=== PATIENT | male | born 1955 | race Caucasian/White ===

== ENCOUNTER 2019-05-02 08:00 | Outpatient (CLI) | payer OTHER ==
[2019-05-02 12:36] LABS: BASOPHILS # (AUTO) 0.1 10^3/uL (0.0-0.1); BASOPHILS % (AUTO) 0.7 %; EOSINOPHILS # (AUTO) 0.2 10^3/uL (0.0-0.7); EOSINOPHILS % (AUTO) 2.8 %; HGB - HEMOGLOBIN 16.5 g/dL (14.0-18.0); LYMPHOCYTES # (AUTO) 4.7 10^3/uL (1.5-3.5); LYMPHOCYTES % (AUTO) 62.5 %; MEAN CORPUSCULAR HEMOGLOBIN 29.5 pg (27.0-31.0); MEAN CORPUSCULAR HGB CONC 34.4 g/dL (32.0-36.0); MEAN CORPUSCULAR VOLUME 85.7 fL (80.0-94.0); MONOCYTES # (AUTO) 0.5 10^3/uL (0.0-1.0); MONOCYTES % (AUTO) 6.2 %; NEUTROPHILS # (AUTO) 2.1 10^3/uL (1.5-6.6); NEUTROPHILS % (AUTO) 27.5 %; PLT - PLATELET COUNT 234 10^3/uL (130-450); RED CELL DISTRIBUTION WIDTH 12.4 % (12.0-15.0); WHITE BLOOD COUNT 7.5 x10^3/uL (4.8-10.8)
[2019-05-02 12:51] LABS: ALBUMIN/GLOBULIN RATIO 1.6 (1.0-2.2); ALKALINE PHOSPHATASE 47 IU/L (42-121); ALT ALANINE AMINOTRANSFERASE 26 IU/L (10-60); AST ASPARTATE AMINOTRANSFERASE 21 IU/L (10-42); BILIRUBIN,TOTAL 1.1 mg/dL (0.2-1.0); BUN - BLOOD UREA NITROGEN 10 mg/dL (6-20); CALCIUM 8.7 mg/dL (8.5-10.3); CARBON DIOXIDE - CO2 23 mmol/L (21-32); CHLORIDE 108 mmol/L (101-111); CHOL/HDL RATIO 6.9 (<5.0); CHOLESTEROL 185 mg/dL; CREATININE 0.9 mg/dL (0.6-1.2); GFR - MDRD 86 (>89); GLUCOSE 99 mg/dL (70-100); HDL CHOLESTEROL 27 mg/dL; LDL CHOLESTEROL,CALCULATED 111 mg/dL; LDL/HDL RATIO 4.1 (<3.6); SODIUM 139 mmol/L (135-145); TOTAL PROTEIN 6.5 g/dL (6.7-8.2); VLDL CHOLESTEROL 47 mg/dL
[2019-05-03 10:35] LABS: HIV AG/AB 4TH GEN NON-REACTIVE (NON-REACTIVE)
[2019-05-03 12:29] LABS: HEPATITIS C ANTIBODY NON-REACTIVE (NON-REACTIVE)
== END 2019-05-02 23:59 | disposition home or self-care (01) ==
LOC: LAB.N 08:00
PROVIDERS: ATTEND Internal Medicine
DX: Z12.5 Encounter for screening for malignant neoplasm of prostate (principal); I25.10 Atherosclerotic heart disease of native coronary artery without angina pectoris; Z20.2 Contact with and (suspected) exposure to infections with a predominantly sexual mode of transmission; Z13.6 Encounter for screening for cardiovascular disorders
CPT/HCPCS: 36415; 80053; 80061; 83721; 84153; 84443; 85025; 86780; 86803; 87389

== ENCOUNTER 2019-12-05 09:30 | Outpatient (CLI) | payer OTHER | END 2019-12-05 09:31 | disposition home or self-care (01) | LOC: COV 09:30 | PROVIDERS: ATTEND Family Medicine | DX: R05 Cough (principal); R06.00 Dyspnea, unspecified; R53.83 Other fatigue; R07.0 Pain in throat; R43.9 Unspecified disturbances of smell and taste; Z20.828 Contact with and (suspected) exposure to other viral communicable diseases ==

== ENCOUNTER 2020-04-02 23:30 | Outpatient (CLI) | payer OTHER | END 2020-04-02 23:31 | disposition critical access hospital (66) | LOC: EMS 23:30 | PROVIDERS: ATTEND Surgery | DX: R07.9 Chest pain, unspecified (principal) | CPT/HCPCS: A0425; A0427 ==

== ENCOUNTER 2020-04-02 23:50 | Emergency (ER) | payer OTHER ==
--- NOTE | 2020-04-03 | ED Physician Documentation ---
PD HPI CHEST PAIN - Stated complaint Stated Complaint: CP - Chief complaint Chief Complaint: Cardiac - History obtained from History obtained from: Patient, EMS - History of Present Illness Timing - onset: How many minutes ago (30), Today Timing - onset during: Rest (he was just getting up off the floor, where he was sitting and noted onset of left chest pain/pressure. Worse with breathing. Lasted 15-20 minutes. EMS called and it was easing as they were starting treatment. Seemed to resolve with NTG/time. No pain on arrival here. Feels similar to CP with WA.) Timing - duration: Minutes Timing - details: Abrupt onset, Now resolved Quality: Aching, Pain Location: Left chest Radiation: No: Jaw, Neck, Back Improved by: Rest, Nitro Worsened by: Inspiration, Movement Associated symptoms: No: Shortness of air, Nausea, Feeling faint / dizzy, Palpitations, Cough Similar symptoms before: Diagnosis (states similar to CP he had with WA 5 years ago. Had stent placed and has been doing well. No exertional CP recently, but has felt dyspnea with activity the past couple months.) Recently seen: Not recently seen Review of Systems Constitutional: denies: Fever, Chills Nose: denies: Rhinorrhea / runny nose, Congestion Throat: denies: Sore throat Respiratory: denies: Cough GI: denies: Abdominal Pain, Nausea, Vomiting, Diarrhea, Bloody / black stool Skin: denies: Rash, Lesions Neurologic: denies: Generalized weakness, Near syncope PD PAST MEDICAL HISTORY - Past Medical History Cardiovascular: [place] (with prior stent 2014) Respiratory: None Neuro: None Endocrine/Autoimmune: None Psych: None Musculoskeletal: None - Present Medications Home Medications: Ambulatory Orders Medication Instructions Recorded Confirmed Aspirin [Aspirin EC] 1 tab PO DAILY 04/03/20 04/03/20 Atorvastatin Calcium 1 tab PO DAILY 04/03/20 04/03/20 - Allergies Allergies/Adverse Reactions: Allergies Allergy/AdvReac Type Severity Reaction Status Date / Time No Known Drug Allergies Allergy Verified 04/03/20 00:01 PD ED PE NORMAL - Vitals Vital signs reviewed: Yes - General General: Alert and oriented X 3, No acute distress, Well developed/nourished - HEENT HEENT: Pharynx benign - Neck Neck: Supple, no meningeal sign, No adenopathy, No JVD - Cardiac Cardiac: RRR, No murmur - Respiratory Respiratory: No respiratory distress, Clear bilaterally, Other (mild local chestwall tenderness left parasternal in area that had pain) - Abdomen Abdomen: Soft, Non tender - Derm Derm: Normal color, Warm and dry - Extremities Extremities: No tenderness to palpate, Normal ROM s pain, No edema, No calf tenderness / cord - Neuro Neuro: Alert and oriented X 3, No motor deficit, Normal speech Results - Vitals Vitals: Vital Signs - 24 hr 04/02/20 04/03/20 04/03/20 23:50 01:04 02:00 Temperature 36.3 C L Heart Rate 98 96 90 Respiratory 20 16 18 Rate Blood Pressure 129/85 H 137/76 H O2 Saturation 95 95 96 04/03/20 02:39 Temperature Heart Rate 90 Respiratory 16 Rate Blood Pressure 135/72 H O2 Saturation 99 Oxygen O2 Source Room air - EKG (time done) 23:56 Rate: Rate (enter#) (102) Rhythm: NSR [place]: Normal Intervals: Normal VT QRS: Normal Ischemia: Normal ST segments. No: ST elevation c/w ischemia, ST depression - Labs Labs: Laboratory Tests 04/03/20 04/03/20 04/03/20 00:00 00:00 00:00 WBC 8.8 RBC 5.53 Hgb 16.5 Hct 47.9 MCV 86.6 MCH 29.8 MCHC 34.4 RDW 12.0 Plt Count 234 MPV 9.9 Neut # (Auto) 2.8 Lymph # (Auto) 5.1 H Taylor # (Auto) 0.6 Eos # (Auto) 0.3 Baso # (Auto) 0.1 Absolute Nucleated RBC 0.00 Nucleated RBC % 0.0 Sodium 137 Potassium 3.6 Chloride 107 Carbon Dioxide 21 Anion Gap 9.0 BUN 13 Creatinine 0.9 Estimated GFR (MDRD) 86 L Glucose 185 H Calcium 8.8 Total Bilirubin 0.4 AST 21 ALT 29 Alkaline Phosphatase 69 Troponin I High Sens 5.6 Total Protein 6.6 L Albumin 4.2 Globulin 2.4 Albumin/Globulin Ratio 1.8 Lipase 31 04/03/20 01:55 WBC RBC Hgb Hct MCV MCH MCHC RDW Plt Count MPV Neut # (Auto) Lymph # (Auto) Taylor # (Auto) Eos # (Auto) Baso # (Auto) Absolute Nucleated RBC Nucleated RBC % Sodium Potassium Chloride Carbon Dioxide Anion Gap BUN Creatinine Estimated GFR (MDRD) Glucose Calcium Total Bilirubin AST ALT Alkaline Phosphatase Troponin I High Sens 4.6 Total Protein Albumin Globulin Albumin/Globulin Ratio Lipase - Rads (name of study) chest xray Radiology: Prelim report reviewed (normal), See rad report PD MEDICAL DECISION MAKING - ED course Complexity details: reviewed results (Trop and 2 hour repeat are both normal. ECG normal. CXR no acute. ), re-evaluated patient, considered differential (history of [place] in past. Had sharp pain that was worse with breathing and has chestwall tenderness here. ECG normal. CXR normal. Will get Troponin and repeat in 2 hours. ), d/w patient Departure - Departure Disposition: Home, Self Care Clinical Impression: Chest pain Qualifiers: Chest pain type: unspecified Qualified Code(s): R07.9 - Chest pain, unspecified Clinical Impression: (Ruled Out): Myocardial infarction Condition: Stable Record reviewed to determine appropriate education?: Yes Instructions: ED Chest Pain Costochondritis Follow-Up: Mely Dhillon MD [Primary Care Provider] - Comments: Your ECG, chest x-ray, troponin tests are completely normal. No signs of heart injury as a cause of the pain. I presume its musculoskeletal chest wall. Tylenol or ibuprofen if needed for pains. Follow-up with your primary care if recurring episodes. Discharge Date/Time: 04/03/20 02:39
[2020-04-03 00:10] LABS: BASOPHILS # (AUTO) 0.1 10^3/uL (0.0-0.1); BASOPHILS % (AUTO) 0.7 %; EOSINOPHILS # (AUTO) 0.3 10^3/uL (0.0-0.7); EOSINOPHILS % (AUTO) 2.9 %; HGB - HEMOGLOBIN 16.5 g/dL (14.0-18.0); LYMPHOCYTES # (AUTO) 5.1 10^3/uL (1.5-3.5); LYMPHOCYTES % (AUTO) 58.4 %; MEAN CORPUSCULAR HEMOGLOBIN 29.8 pg (27.0-31.0); MEAN CORPUSCULAR HGB CONC 34.4 g/dL (32.0-36.0); MEAN CORPUSCULAR VOLUME 86.6 fL (80.0-94.0); MEAN PLATELET VOLUME 9.9 fL (7.4-11.4); MONOCYTES # (AUTO) 0.6 10^3/uL (0.0-1.0); MONOCYTES % (AUTO) 6.5 %; NEUTROPHILS # (AUTO) 2.8 10^3/uL (1.5-6.6); NEUTROPHILS % (AUTO) 31.4 %; PLT - PLATELET COUNT 234 10^3/uL (130-450); RED BLOOD COUNT 5.53 10^6/uL (4.70-6.10); WHITE BLOOD COUNT 8.8 x10^3/uL (4.8-10.8)
[2020-04-03 00:24] LABS: ALBUMIN 4.2 g/dL (3.2-5.5); ALBUMIN/GLOBULIN RATIO 1.8 (1.0-2.2); BILIRUBIN,TOTAL 0.4 mg/dL (0.2-1.0); CALCIUM 8.8 mg/dL (8.5-10.3); CREATININE 0.9 mg/dL (0.6-1.2); TOTAL PROTEIN 6.6 g/dL (6.7-8.2)
[2020-04-03 02:40] VITALS: BP 135/72
--- NOTE | 2020-04-03 09:44 | XRAY Report ---
PROCEDURE: Chest 1 View X-Ray INDICATIONS: Chest pain TECHNIQUE: One view of the chest was acquired. COMPARISON: None FINDINGS: Surgical changes and devices: None. Lungs and pleura: No pleural effusions or pneumothorax. Lungs are clear. Mediastinum: The aorta is prominent and tortuous. The cardiac contours are within normal limits. Bones and chest wall: No suspicious bony lesions. Mild, age-appropriate degenerative changes are se en. Overlying soft tissues appear unremarkable. IMPRESSION: Unremarkable portable chest study for age. Note: No significant discrepancy from the preliminary report. Reviewed by: Denis Castillo MD on 04/03/2020 8:[address] [facility] Approved by: Denis Castillo MD on 04/03/2020 8:[address] [facility] Station ID: [id number]
== END 2020-04-03 02:39 | disposition home or self-care (01) ==
LOC: EDUNIT# → ED 23:50
DX: R07.9 Chest pain, unspecified (principal); R00.0 Tachycardia, unspecified; I25.2 Old myocardial infarction; Z95.5 Presence of coronary angioplasty implant and graft; Z79.82 Long term (current) use of aspirin
CPT/HCPCS: 36415; 80053; 83690; 84484; 85025; 93005; 99284

== ENCOUNTER 2022-01-09 22:56 | Emergency (ER) | payer OTHER ==
--- NOTE | 2022-01-10 01:28 | ED Physician Documentation ---
PD HPI SKIN - Stated complaint Stated Complaint: R FOOT LAC - Chief complaint Chief Complaint: Laceration - History obtained from History obtained from: Patient - Additional information Additional information: 66-year-old man presents with right foot injury and likely glass foreign body from the big Glass in the kitchen a couple days ago. Patient is going on a 3-day hike in [facility] in a few days and would like to have it the glass removed. No other complaints. Review of Systems Skin: reports: Laceration (s), Other (foreign body) PD PAST MEDICAL HISTORY - Past Medical History Past Medical History: Yes Cardiovascular: Hypertension, High cholesterol, [place] Respiratory: None Neuro: None Endocrine/Autoimmune: None Psych: None Musculoskeletal: None - Past Surgical History Past Surgical History: Yes Cardiovascular: Cardiac catheterization - Present Medications Home Medications: Ambulatory Orders Medication Instructions Recorded Confirmed Aspirin [Aspirin EC] 1 tab PO DAILY 04/03/20 01/09/22 Atorvastatin Calcium 1 tab PO DAILY 04/03/20 01/09/22 - Allergies Allergies/Adverse Reactions: Allergies Allergy/AdvReac Type Severity Reaction Status Date / Time No Known Drug Allergies Allergy Verified 01/09/22 23:10 - Social History Does the pt smoke?: No Smoking Status: Never smoker Does the pt drink ETOH?: No Does the pt have substance abuse?: No - Immunizations Immunizations are current?: Yes PD ED PE NORMAL - Vitals Vital signs reviewed: Yes - General General: Alert and oriented X 3, No acute distress, Well developed/nourished - HEENT HEENT: Atraumatic, PERRL, EOMI - Derm Derm: Normal color, Warm and dry, Other (Glass foreign body in right outer arch of foot) Results - Vitals Vitals: Vital Signs - 24 hr 01/09/22 01/10/22 23:10 01:30 Temperature 36.5 C 36.5 C Heart Rate 95 88 Respiratory 15 16 Rate Blood Pressure 135/89 H 132/88 H O2 Saturation 98 99 Oxygen O2 Source Room air Procedures - FB removal FB location: Subcutaneous FB removal preparation: Local anesthesia-specify (1% lidocaine) Removal method: Irrigated/flushed, Incision FB removal aftercare: No complications, Patient tolerated well, Removed successfully PD MEDICAL DECISION MAKING - ED course ED course: 66-year-old man presented with glass foreign body which was removed without incident. Manage placed and cleaned appropriately. Return precautions given. Symptomatic care discussed. Departure - Departure Disposition: 01 Home, Self Care Clinical Impression: Foreign body (FB) in soft tissue Condition: Good Instructions: Incision Care Comments: You are seen in the emergency department for glass in the foot. It was removed without issue. Please return to the emergency department if you experience any signs of infection including redness, swelling, increased pain, or pus. Change the bandaid daily and keep it clean with soap and water. Please also return if you have any other new or worsening symptoms or other concerns. Enjoy your hike! Discharge Date/Time: 01/10/22 01:30
[2022-01-10 01:31] VITALS: BP 132/88
== END 2022-01-10 01:30 | disposition home or self-care (01) ==
LOC: ED 22:56
DX: S91.321A Laceration with foreign body, right foot, initial encounter (principal); X58.XXXA Exposure to other specified factors, initial encounter
CPT/HCPCS: 28190

== ENCOUNTER 2023-04-01 15:50 | Emergency (ER) | payer OTHER ==
[2023-04-01 16:10] VITALS: BP 171/90; O2SAT 99
[2023-04-01] MEDS ORDERED: diazePAM 5 MG TABLET PO STA (16:52)
[2023-04-01] MEDS ORDERED: methocarbamoL 500 MG TABLET PO STA (16:52)
[2023-04-01] MEDS ORDERED: LIDOCAINE PATCH 4% TOP STA (16:52)
[2023-04-01] MEDS ORDERED: ACETAMINOPHEN 325 MG TABLET PO STA (16:52)
[2023-04-01] MEDS ORDERED: KETOROLAC 30 MG/ML VIAL IM STA (16:52)
--- NOTE | 2023-04-01 17:31 | ED Physician Documentation ---
PD HPI BACK PAIN - Stated complaint Stated Complaint: BACK PX - Chief complaint Chief Complaint: Back Pain - History obtained from History obtained from: Patient - Additional information Additional information: 67-year-old male presents for atraumatic right-sided lumbar back pain since 10 this morning. Patient was unloading baggage and felt something pull in his back. He had to lay on the floor because the pain was intense and he had difficulty standing up straight. He took ibuprofen at home but his pain was still intense and so he decided to come in for evaluation. Denies trauma. Denies bowel or bladder incontinence, denies saddle anesthesia. Reports difficulty in ambulating due to pain, but denies weakness in his lower extremities. Review of Systems Constitutional: denies: Fever, Chills Musculoskeletal: reports: Back pain. denies: Neck pain, Extremity pain, Extremity swelling Neurologic: denies: Generalized weakness, Focal weakness, Numbness, Difficulty speaking, Syncope, Headache, Head injury PD PAST MEDICAL HISTORY - Past Medical History Cardiovascular: Hypertension, High cholesterol, [place] Respiratory: None Neuro: None Endocrine/Autoimmune: None Psych: None Musculoskeletal: None - Past Surgical History Past Surgical History: Yes Cardiovascular: Cardiac catheterization - Present Medications Home Medications: Ambulatory Orders Medication Instructions Recorded Confirmed Aspirin [Aspirin EC] 1 tab PO DAILY 04/03/20 01/09/22 Atorvastatin Calcium 1 tab PO DAILY 04/03/20 01/09/22 HYDROcod/ACETAM 5/325 [Davis 5/325] 1 - 2 tab PO Q6H PRN #8 tablet 04/01/23 methocarbamoL [Robaxin] 500 mg PO Q6H #30 tablet 04/01/23 - Allergies Allergies/Adverse Reactions: Allergies Allergy/AdvReac Type Severity Reaction Status Date / Time No Known Drug Allergies Allergy Verified 01/09/22 23:10 - Social History Does the pt smoke?: No Smoking Status: Never smoker Does the pt drink ETOH?: No Does the pt have substance abuse?: No - Immunizations Immunizations are current?: Yes PD ED PE NORMAL - Vitals Vital signs reviewed: Yes - General General: Alert and oriented X 3, No acute distress, Well developed/nourished - Cardiac Cardiac: RRR, Strong equal pulses - Respiratory Respiratory: No respiratory distress, Clear bilaterally - Abdomen Abdomen: Soft, Non tender, Non distended - Back Back: No CVA TTP, No spinal TTP, Other (R lumbar paraspinal muscle spasm) - Derm Derm: Normal color, Warm and dry, No rash - Extremities Extremities: No deformity, No tenderness to palpate, Normal ROM s pain, No edema - Neuro Neuro: Alert and oriented X 3, entertainment reporter 2-12 intact, No motor deficit, Normal speech Results - Vitals Vitals: Vital Signs - 24 hr 04/01/23 16:01 Temperature 36.5 C Heart Rate 80 Respiratory 18 Rate Blood Pressure 171/90 H O2 Saturation 99 Oxygen O2 Source Room air PD Medical Decision Making - ED course Complexity details: reviewed results, re-evaluated patient, considered differential, d/w patient ED course: Atraumatic lumbar back pain after lifting heavy objects. No signs/symptoms of cauda equina. Patient was given multiple medications for muscle relaxation and pain control. After medication was allowed to work he reported improvement in his symptoms and was able to move around with much less pain. Patient was counseled on back care tips and anticipated course of recovery. Pain medication sent to pharmacy of choice. Departure - Departure Disposition: 01 Home, Self Care Clinical Impression: Back pain Condition: Stable Instructions: ED Spasm Muscle, ED Neck Back Pain General Prescriptions: HYDROcod/ACETAM 5/325 [Davis 5/325] 1 - 2 tab PO Q6H PRN #8 tablet PRN Reason: Pain methocarbamoL [Robaxin] 500 mg PO Q6H #30 tablet Comments: You may alternate 400 mg of ibuprofen and 1000 mg of Tylenol every 4-6 hours for pain. The medication I prescribed does have some Tylenol in it, it is important that you avoid taking more than 4000 mg of Tylenol daily. Be careful when taking the Davis as it may lead to drowsiness. Do not take this medication with alcohol or before operating heavy machinery. It may lead to constipation so take a daily stool softener. I also recommend alternating heat and ice as needed for comfort. Gentle stretching exercises at home will also help improve your symptoms. Follow-up with your primary care physician. RX SENT TO [facility] IN [place]. PHARMACIES ARE CLOSED 04/02 Discharge Date/Time: 04/01/23 18:51
[2023-04-01] MEDS ORDERED: HYDROcod/ACET 5/325 Prepack 4 PO STA (18:19)
[2023-04-01] MEDS ORDERED: CYCLOBENZAPRINE 10 MG Prepack 2 PO PRN (18:19)
== END 2023-04-01 18:51 | disposition home or self-care (01) ==
LOC: ED 15:50
DX: M54.50 Low back pain, unspecified (principal)
CPT/HCPCS: 96372; 99283; A9270